=== PATIENT | male | born 1985 | race African-American/Black ===

== ENCOUNTER 2019-08-02 10:58 | Emergency (ER) | payer SELFPAY ==
[2019-08-02 11:24] VITALS: BP 136/81; PULSE 90; TEMP 98; BMI 25.7
--- NOTE | 2019-08-02 12:39 | PDOC ---
History of Present Illness - General Chief Complaint: Pain Stated Complaint: CHEST PAIN Time Seen by Provider: 08/02/19 11:32 - History of Present Illness Initial Comments: 08/02/19 12:36 34-year-old male without comorbidities presents for evaluation of left-sided chest pain x6 weeks without radiation of symptoms recently noticed when he was working out he has stopped working out because of the chest pain. Past History - Past Medical History Allergies/Adverse Reactions: Allergies Allergy/AdvReac Type Severity Reaction Status Date / Time No Known Allergies Allergy Verified 08/02/19 11:24 COPD: No - Psycho Social/Smoking Cessation Hx Smoking History: Current every day smoker Number of Cigarettes Smoked Daily: 1 Information on smoking cessation initiated: No Review of Systems - Review of Systems Constitutional: No: Fever Cardiac (ROS): Yes: Chest Pain *Physical Exam - Vital Signs Last Vital Signs Temp Pulse Resp BP Pulse Ox 98 F 90 18 136/81 99 08/02/19 11:22 08/02/19 11:22 08/02/19 11:22 08/02/19 11:22 08/02/19 11:22 - Physical Exam Comments: 08/02/19 12:36 GENERAL: The patient is awake, alert, and fully oriented, in no acute distress. HEAD: Normal with no signs of trauma. EYES: sclera anicteric, conjunctiva clear. ENT: Ears normal NECK: Normal range of motion LUNGS: Breath sounds equal, clear to auscultation bilaterally. No wheezes, and no crackles. HEART: S1 and S2 without murmur, rub or gallop. ABDOMEN: Soft, nontender, normoactive bowel sounds. No guarding, no rebound. No masses. EXTREMITIES: Normal range of motion, no edema. No clubbing or cyanosis. No cords, erythema, or tenderness. NEUROLOGICAL: Cranial nerves II through XII grossly intact. Normal speech, normal gait. PSYCH: Normal mood, normal affect. SKIN: Warm, Dry, normal turgor, no rashes or lesions noted. ED Treatment Course - RADIOLOGY Radiology Studies Ordered: Category Date Time Status CHEST PA & LAT [RAD] Stat Radiology 08/02/19 12:29 Ordered Medical Decision Making - Medical Decision Making 08/02/19 12:36 Benign examination chest x-ray normal EKG mild right axis deviation most likely musculoskeletal we will have patient follow-up with cardiology Discharge - Discharge Information Problems reviewed: Yes Clinical Impression/Diagnosis: Chest pain Condition: Stable Disposition: HOME - Admission No - Follow up/Referral Referrals: Bruce Burk MD [Staff Physician] - - Patient Discharge Instructions Patient Printed Discharge Instructions: DI for Chest Pain, DI for Atypical Chest Pain Additional Instructions: Tylenol Motrin for pain. Return to the emergency room for worsening symptoms. Without fail please follow-up with cardiology in 1 to 2 days for further evaluation and treatment options. It appears her chest pain is not cardiac in nature however if it returns even with Tylenol and Motrin and treatment return to the emergency room. And again without fail follow-up with cardiology in the next 1 to 2 days - Post Discharge Activity
--- NOTE | 2019-08-04 15:56 | EKG ---
Test Reason : Blood Pressure : / mmHG Vent. Rate : 092 BPM Atrial Rate : 092 BPM P-R Int : 170 ms QRS Dur : 092 ms QT Int : 324 ms P-R-T Axes : 074 102 060 degrees QTc Int : 400 ms NORMAL SINUS RHYTHM RIGHTWARD AXIS BORDERLINE ECG NO PREVIOUS ECGS AVAILABLE Confirmed by MARYLOU ARNOLD, LIZETH ([id number]) on 08/04/2019 3:55:49 PM Referred By: Confirmed By:LIZETH HICKMAN MD
== END 2019-08-02 12:47 | disposition home or self-care (01) ==
LOC: JERFT 10:58
DX: R07.9 Chest pain, unspecified (principal)
CPT/HCPCS: 71046-TC-FY; 93005; 93010; 99281-25